=== PATIENT | male | born 1985 | race African-American/Black ===

== ENCOUNTER 2017-04-20 13:03 | Emergency (ER) | payer MEDICAID ==
[~2017-04-20] VITALS: Ht 180.3 cm; Wt 69.0 kg
[2017-04-20 16:10] VITALS: BP 117/76
== END 2017-04-20 17:11 | disposition home or self-care (01) ==
LOC: ER 15:03
DX: L02.511 Cutaneous abscess of right hand (principal); S61.451D Open bite of right hand, subsequent encounter; W54.0XXD Bitten by dog, subsequent encounter; Z91.14 Patient's other noncompliance with medication regimen; Z71.89 Other specified counseling; F17.210 Nicotine dependence, cigarettes, uncomplicated
CPT/HCPCS: 99283